=== PATIENT | male | born 1985 | race Caucasian/White ===

== ENCOUNTER 2022-04-05 11:12 | Emergency (ER) | payer BC, SELFPAY ==
[2022-04-05 11:18] VITALS: BP 115/64; PULSE 77; RESP 14; TEMP 36.8; O2SAT 99
[2022-04-05] MEDS: Lidocaine 1% Multi-Dose 20 ML VIAL (12:34)
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
== END 2022-04-05 13:18 | disposition home or self-care (01) ==
PROVIDERS: Emergency Provider Nurse Practitioner Family
DX: S81.811A Laceration without foreign body, right lower leg, initial encounter (principal); V18.4XXA Pedal cycle driver injured in noncollision transport accident in traffic accident, initial encounter; S80.812A Abrasion, left lower leg, initial encounter; Z23 Encounter for immunization
CPT/HCPCS: 12002; 90471; 99283; 73590; 99282; J3490